=== PATIENT | female | born 1940 | race Caucasian/White ===

== ENCOUNTER 2024-06-19 07:26 | Outpatient (CLI) | payer MEDICARE, SELFPAY | END 2024-06-19 07:27 | disposition home or self-care (01) | LOC: AMB 06-20 01:18 | PROVIDERS: Visit Provider Family Medicine | DX: S79.911A Unspecified injury of right hip, initial encounter (principal); W06.XXXA Fall from bed, initial encounter; Y92.003 Bedroom of unspecified non-institutional (private) residence as the place of occurrence of the external cause | CPT/HCPCS: A0425; A0427 ==

== ENCOUNTER 2024-06-19 08:00 | Observation (INO) | payer MEDICARE, SELFPAY ==
[2024-06-19] VITALS (10 sets, daily range): BP systolic 117–166; BP diastolic 68–93; PULSE 67–91; RESP 16–18; TEMP 36.4–37.3; O2SAT 88–96; BMI 30.9; BMI 26.5
--- NOTE | 2024-06-19 08:02 | ED_ITS ---
HPI - General Adult General Chief complaint: Hip Injury/Pain Stated complaint: Fall Time Seen by Provider: 06/19/24 08:02 History of Present Illness HPI narrative: was staying at her sons' home when she fell out of the bed. there was a rug, and she didn't want to bother her family, did call her family to let them know she was on the floor. 'I just rolled off the bed. has a large hematoma on the right hip. hx of right hip replacement. had fentanyl 50 mcg per ems. has pain with movement. denies other injuries. 83-year-old woman presenting to the emergency department via EMS with concern of right hip pain. Hurts a great deal to move her leg. The right hip is postsurgi lindsey with history of total hip arthroplasty. Is from [place] staying at her son's home in apparently fell out of bed onto the floor where there was a rug. Later query of phone calls made which apparently were made around the time of her fall would indicate an hour and a half or so down time but may have been longer. Did not hit her head. There was no thought of loss of consciousness. Was also noted to have sustained hematoma on the right hip. No complaint of new back pain. No abdominal pain. Has not been vomiting. Is not anticoagulated Related Data Home Medications ?Medication ?Instructions ?Recorded ?Confirmed alendronate 70 mg tablet 70 mg PO .weekly 06/19/24 06/19/24 atorvastatin 20 mg tablet 20 mg PO DAILY 06/19/24 06/19/24 lisinopril 5 mg tablet 5 mg PO DAILY 06/19/24 06/19/24 sertraline 100 mg tablet 100 mg PO DAILY 06/19/24 06/19/24 Allergies Allergy/AdvReac Type Severity Reaction Status Date / Time ampicillin Allergy Verified 06/19/24 08:16 clindamycin Allergy Verified 06/19/24 08:16 Penicillins Allergy Verified 06/19/24 08:16 Review of Systems Status of ROS: Reports: 6 or more systems reviewed and unremarkable except as noted in History and below [facility] Medical History Hyperlipidemia ?E78.5 - Hyperlipidemia, unspecified (ICD-10) Essential hypertension ?I10 - Essential (primary) hypertension (ICD-10) Osteoporosis ?M81.0 - Age-related osteoporosis without current pathological fracture (ICD- 10) Surgical History (Updated 06/19/24 @ 09:57 by Kamila Ventura MD) S/P hip replacement ?Z96.649 - Presence of unspecified artificial hip joint (ICD-10) Exam Narrative: Exam Narrative: Pleasant. Small repeated vocalizations. Does not appear to be in particular distress at rest. Head looks atraumatic. Rolling later to examine back shows kyphosis and some scoliosis but no acute injury and no tissue breakdown over bottom or back. There is a half softball sized hematoma at the right greater trochanter. Abdomen is soft and nontender. No tenderness to anterior compression of the hips. Manipulation of the right hip flexion extension does cause pain. Left hip without pain to the left hip however manipulation of the left hip causes pain in the right. Heart in regular rate and rhythm. She is breathing easily and lungs appear to be clear. Const: Vital Signs, click to edit/add: Vital Signs - 24 hr 06/19/24 08:07 Temperature 97.7 F Pulse Rate [Pulse Oximeter] 78 Respiratory Rate 18 Blood Pressure [Ri ght Upper Arm] 159/83 H Pulse Oximetry 93 Oxygen Delivery Me thod Room Air Documenting provider has reviewed patient's vital signs: yes Course Vital Signs Vital signs: Initial Vital Signs Temperature 97.7 F 06/19/24 08:07 Temperature Source Temporal Artery Scan 06/19/24 08:07 Pulse Rate 78 06/19/24 08:07 Respiratory Rate 18 06/19/24 08:07 Blood Pressure 159/83 H 06/19/24 08:07 Blood Pressure Mean 108 H 06/19/24 08:07 Blood Pressure Position Supine 06/19/24 08:07 Pulse Oximetry 93 06/19/24 08:07 Oxygen Delivery Method Room Air 06/19/24 08:07 Vital Signs Temperature 97.7 F 06/19/24 08:07 Pulse Rate 78 06/19/24 08:07 Respiratory Rate 18 06/19/24 08:07 Blood Pressure 159/83 H 06/19/24 08:07 Pulse Oximetry 93 06/19/24 08:07 Oxygen Delivery Method Room Air 06/19/24 08:07 Temperature 97.7 F 06/19/24 08:07 Pulse Rate 78 06/19/24 08:07 Respiratory Rate 18 06/19/24 08:07 Blood Pressure 159/83 H 06/19/24 08:07 Pulse Oximetry 93 06/19/24 08:07 Oxygen Delivery Method Room Air 06/19/24 08:07 Medical Decision Making MDM Narrative Medical decision making narrative: Certainly may have sustained a hip or pelvic fracture here. The hematoma may be alone causing her pain. The suspect will need to be monitored for expanding of the hematoma though I think less risk given lack of anticoagulation. Down time may warrant further evaluation for renal injury/muscle breakdown. This is likely to have been of brief duration though. Would start with x-rays with concern of scatter from CT. Hip and pelvis x-rays reviewed by me shows a minimally displaced pubic ramus fracture. Hardware looks to be intact. Discussed at initial read with radiologist. See over-read below Three views right hip FINDINGS/IMPRESSION: Normal alignment. No acute fracture or acute osseous abnormalities are visualized. Right hip arthroplasty intact. Soft tissue edema/swelling over the right hip likely reflecting hematoma Dictated by Alis Wilde MD @ 06/19/2024 9:22:07 AM ----- ADDENDUM ----- Addendum: : Please disregard the prior report and refer to this report there are fractures of the right superior pubic ramus and pubis. No significant displacement. Dictated by Alis Wilde MD @ Jun 19 2024 9:32AM (Electronically Signed) For Patients: As a result of the Cures Act, medical imaging exams and procedure reports are released immediately into your electronic medical record. You may view this report before your referring provider. If you have questions, please contact your health care provider. INDICATION: Right hip out of bed TECHNIQUE: Three views right hip FINDINGS/IMPRESSION: Normal alignment. No acute fracture or acute osseous abnormalities are visualized. Right hip arthroplasty intact. Soft tissue edema/swelling over the right hip likely reflecting hematoma Given age and as out of town staying currently at son's home for the holiday, I think it will be difficult to manage there. Did discuss trial at home however I think would be better to be admitted to assess pain needs and mobility. Discussed with orthopedics and then with hospitalist is thankfully accepting for admission. Have ordered other lab evaluations as requested by hospitalist anticipation of admission. Also CT pelvis per orthopedics. Lab Data Lab results reviewed: Yes I reviewed the patient's lab results Labs: Lab Results 06/19/24 Range/Units 09:45 WBC 11.25 H (4.50-11.00) K/uL RBC 4.04 (4.00-5.20) m/uL Hgb 12.6 (12.0-16.0) gm/dL Hct 37.6 (33.0-51.0) % MCV 93 (80-100) fL MCH 31 (26-34) pg MCHC 34 (32-36) gm/dL RDW Coeff of Stanley 12.5 (11.5-15.5) % Plt Count 164 (140-440) K/uL Neut % (Auto) 87.3 H (42.0-72.0) % Lymph % (Auto) 6.2 L (20-44) % Toombs % (Auto) 5.5 (0.0-11.0) % Eos % (Auto) 0.2 (0.0-7.0) % Baso % (Auto) 0.2 (0.0-3.0) % Neut # (Auto) 9.80 H (1.7-7.0) K/uL Lymph # (Auto) 0.70 L (0.90-2.90) K/uL Toombs # (Auto) 0.60 (0.00-0.90) K/UL Eos # (Auto) 0.00 (0.00-0.50) K/uL Baso # (Auto) 0.00 (0.00-0.30) K/uL Abs Immat Gran (auto) 0.10 (0.00-0.30) K/uL Imm/Tot Granulo (auto) 0.6 % Discharge Plan Discharge Clinical Impression: Closed pelvic fracture, Hematoma Patient Disposition: Admitted As Observation Condition: Stable
--- NOTE | 2024-06-19 08:24 | CRLHL7_ITS ---
For Patients: As a result of the Cures Act, medical imaging exams and procedure reports are released immediately into your electronic medical record. You may view this report before your referring provider. If you have questions, please contact your health care provider. INDICATION: Right hip out of bed TECHNIQUE: Three views right hip FINDINGS/IMPRESSION: Normal alignment. No acute fracture or acute osseous abnormalities are visualized. Right hip arthroplasty intact. Soft tissue edema/swelling over the right hip likely reflecting hematoma Dictated by Alis Wilde MD @ 06/19/2024 9:22:07 AM (Electronically Signed)
--- NOTE | 2024-06-19 09:33 | CRLHL7_ITS ---
For Patients: As a result of the Cures Act, medical imaging exams and procedure reports are released immediately into your electronic medical record. You may view this report before your referring provider. If you have questions, please contact your health care provider. Indication: Clarify pelvic fracture Technique: CT pelvis without contrast is obtained. Comparison: X-ray right hip June 18, 2024 Findings: Diffuse bony demineralization. Stable postoperative changes related to right total hip arthroplasty. There is no periprosthetic fracture or loosening. Hardware is intact. Bony pelvis is intact. Degenerative changes of bilateral SI joint. Osteitis pubis. Redemonstration of small soft tissue hematoma of the right posterolateral proximal thigh, which is partially imaged. Included abdomen demonstrates no acute findings. No free fluid. Bilateral inguinal hernia containing bowel loop and mesenteric fat. In addition, right inguinal hernia demonstrates possibility appendix. Impression: Soft tissue hematoma of the right posterolateral thigh, partially imaged. Stable postoperative changes of right total hip arthroplasty without acute fracture. Please note that all CT scans at this facility use dose modulation, iterative reconstruction, and/or weight-based dosing when appropriate to reduce radiation dose to as low as reasonably achievable. Dictated by Braden Johnson MD @ 06/19/2024 10:49:52 AM (Electronically Signed)
[2024-06-19 09:54] LABS: Basophils Percent Auto 0.2 % (0.0-3.0); Eosinophils Percent Auto 0.2 % (0.0-7.0); Hematocrit 37.6 % (33.0-51.0); Hemoglobin* 12.6 gm/dL (12.0-16.0); Immature Granulocytes Pct Auto 0.6 %; Lymphocytes Percent Auto 6.2 % (20-44); Mean Corpuscular HGB Conc 34 gm/dL (32-36); Mean Corpuscular Hemoglobin 31 pg (26-34); Mean Corpuscular Volume 93 fL (80-100); Monocytes Percent Auto 5.5 % (0.0-11.0); Neutrophils Percent Auto 87.3 % (42.0-72.0); Platelet Count* 164 K/uL (140-440); RDW Coefficient of Variation % 12.5 % (11.5-15.5); Red Blood Count 4.04 m/uL (4.00-5.20); White Blood Count* 11.25 K/uL (4.50-11.00)
--- NOTE | 2024-06-19 09:56 | PM.IMHP1 ---
Hospitalist- H&P: HPI History of Present Illness Date Seen: 06/19/24 Chief complaint: Fall Narrative: Sydney Thakkar is a 83 year old female who presented to the ER this morning after a fall at her son's house. She was sleeping in a twin bed at his house (normally sleeps in a [place]), woke up on the floor. Doesn't formally remember the fall or any incidents leading up to it. No headache or neurological symptoms. + R hip pain. Acting normally, per son. ER Course: - concern for pelvic fracture on XR, no fracture on CT - large hematoma R hip - reassuring Hgb, + WBC on UA, culture pending - [place] given for pain Unable to ambulate without an assist of 2 people in ED, admitted for pain management and disposition assistance. Sydney lives in [place], she's visiting her son in [place] for Thanksgiving. Son notes that family has been considering increased services at home for some time. Histories updated below. PCP at [facility] in [place], [place]. Review of Systems Status of ROS: Reports: 10 or more systems reviewed and unremarkable except as noted in History and below [facility] Medical History (Updated 06/19/24 @ 12:17 by Kamila Ventura MD) Alzheimer dementia ?G30.9 - Alzheimer's disease, unspecified (ICD-10) ?F02.80 - Dementia in other diseases classified elsewhere, unspecified severity, without behavioral disturbance, psychotic disturbance, mood disturbance, and anxiety (ICD-10) Hyperlipidemia ?E78.5 - Hyperlipidemia, unspecified (ICD-10) Essential hypertension ?I10 - Essential (primary) hypertension (ICD-10) Osteoporosis ?M81.0 - Age-related osteoporosis without current pathological fracture (ICD-10) Surgical History (Updated 06/19/24 @ 09:57 by Kamila Ventura MD) S/P hip replacement ?Z96.649 - Presence of unspecified artificial hip joint (ICD-10) Social History (Updated 06/19/24 @ 12:12 by Kamila Ventura MD) Narrative: Lives independently in [place], [place]. Daughter Cee SANCHEZ. Nonsmoker, no ETOH. What is your current living situation?: I presently have a place to live Problems where you live: no known problems Problems where you live details: none In the past 12 months, utilities in danger of being shut off: no In the past 12 mos, have been you worried that your food would run out before you had money to buy more?: never true In the past 12 mos, the food you bought just didn't last and you didn't have money to buy more?: never true Highest level of school completed/degree received: Associate degree: occupational, technical, vocational program Smoking Status: Never smoker Do you use any of these nicotine containing products: None Second hand tobacco smoke exposure: No How often do you have a drink containing alcohol: monthly or less Alcohol type: wine How many standard drinks containing alcohol do you have on a typical day: 1 or 2 How often do you have six or more drinks on one occasion: Never AUDIT-C Alcohol total score: 1 Non-prescribed substance use: denies use Caffeine: Yes (1 cup dly) How often does anyone, including family, friends and others, physically hurt you: never How often does anyone, including family, friends and others, insult or talk down to you: never How often does anyone, including family, friends and others, threaten you with harm: never How often does anyone, including family, friends and others, scream or curse at you: never Gender Identity: female service: No Meds Home Medications and Allergies Home Medications ?Medication ?Instructions ?Recorded ?Confirmed ?Type alendronate 70 mg tablet 70 mg PO .weekly 06/19/24 06/19/24 History atorvastatin 20 mg tablet 20 mg PO DAILY 06/19/24 06/19/24 History lisinopril 5 mg tablet 5 mg PO DAILY 06/19/24 06/19/24 History sertraline 100 mg tablet 100 mg PO DAILY 06/19/24 06/19/24 History Allergies Allergy/AdvReac Type Severity Reaction Status Date / Time ampicillin Allergy Verified 06/19/24 08:16 clindamycin Allergy Verified 06/19/24 08:16 Penicillins Allergy Verified 06/19/24 08:16 Exam Narrative: Exam Narrative: GEN: Alert and answering questions appropriately, nontoxic HEENT: No hematomas or abrasions on head, pupils miotic bilaterally, EOMIs CV: RRR, No concerning murmurs R: LCTA bilaterally without concerning wheezing, air movement adequate Ab: Soft and nontender Ext: wwp, 1+ BLE edema Skin: Hematoma left hand, large hematoma right hip Neuro: No focal neurologic deficits Psych: Appears to have cognitive impairment, no agitation Const: Vital Signs, click to edit/add: Vital Signs - 24 hr 06/19/24 08:07 Temperature 97.7 F Pulse Rate [Pulse Oximeter] 78 Respiratory Rate 18 Blood Pressure [Ri ght Upper Arm] 159/83 H Pulse Oximetry 93 Oxygen Delivery Me thod Room Air Assessment and Plan Assessment and plan (1) Fall: Problem comment: - presumably mechanical 2/2 confusion at son's house (smaller bed than home) - follow on telemetry to ensure no arrythmia - therapies ordered Status: Acute (2) Hematoma: Problem comment: - R hip, follow Hgb Status: Acute Plan - per above - continue home medications for comorbidities - son updated at bedside, questions answered - he believes Sydney is Full Code, confirming with DANIEL
[2024-06-19 10:05] LABS: Slide Review Reflex No
[2024-06-19 10:08] LABS: Albumin* 3.8 g/dL (3.3-5.0); Chloride* 100 mmol/L (96-114); Sodium* 133 mmol/L (135-149)
[2024-06-19 10:09] LABS: Potassium* 4.4 mmol/L (3.6-5.1)
[2024-06-19 10:09] LABS: Appearance Urine Clear (Clear); Bilirubin Urine Negative (Negative); Blood Urine Negative (Negative); Color Urine Yellow (Yellow); Glucose Urine Negative (Negative); Ketones Urine Trace (Negative); Leukocyte Esterase Urine 1+ (Negative); Nitrite Urine Negative (Negative); Protein Urine Negative (Negative); pH Urine 6.5 (5.0-8.5)
[2024-06-19] MEDS: HYDROCODONE-ACETAMIN 5-325 MG 1 TAB 2 TAB PO (10:09)
[2024-06-19 10:11] LABS: Alkaline Phosphatase* 58 U/L (40-150); Anion Gap 5 mEq/L (7-15); Aspartate Amino Transferase* 26 U/L (12-35); Bilirubin Direct* 0.2 mg/dL (0.0-0.5); Bilirubin Total* 1.4 mg/dL (0.1-1.5); Blood Urea Nitrogen* 12 mg/dL (7-30); Carbon Dioxide* 28 mmol/L (20-32); Creatine Kinase* 77 U/L (41-117); Creatinine* 0.5 mg/dL (0.5-1.5); Est. Creatinine Clearance* 36.16; Estimated Glomerular Filt Rate 92 ml/min; Glucose* 103 mg/dL (60-115); Total Protein* 6.3 g/dL (6.0-8.3)
[2024-06-19 10:12] LABS: Alanine Aminotransferase* 18 U/L (4-35)
[2024-06-19 10:16] LABS: Bacteria Urine Few; RBC Urine 0-2 (0-2)
[2024-06-19 18:29] LABS: Hemoglobin* 12.2 gm/dL (12.0-16.0)
--- NOTE | 2024-06-19 23:15 | PC.NURSE ---
PATIENT ORIENTED TO SELF AND REQUIRING FREQUENT REORIENTATION BUT PLEASANT AND COOPERATIVE. TELE SHOWING INTERMITTENT A-FIB WHICH WAS CONFIRMED WITH EKG. DR. BARNES UPDATED. CURRENTLY NSR WITH PAC'S AND RATE 70-80'S. UP WITH A1-2, WALKER AND GAIT BELT TO COMMODE AND RECLINER. DENIES PAIN AT REST.
[2024-06-20] MEDS: ACETAMINOPHEN 325 MG TABLET 975 MG PO (01:44)
[2024-06-20 01:50] VITALS: BP 159/71; PULSE 73; RESP 20; TEMP 36.6; O2SAT 93
[2024-06-20 06:23] LABS: Basophils Absolute Auto 0.02 K/uL (0.00-0.30); Basophils Percent Auto 0.3 % (0.0-3.0); Eosinophils Absolute Auto 0.04 K/uL (0.00-0.50); Eosinophils Percent Auto 0.5 % (0.0-7.0); Hematocrit 34.5 % (33.0-51.0); Hemoglobin* 11.5 gm/dL (12.0-16.0); Immature Granulocytes Pct Auto 1.3 %; Mean Corpuscular HGB Conc 33 gm/dL (32-36); Mean Corpuscular Hemoglobin 31 pg (26-34); Mean Corpuscular Volume 94 fL (80-100); Monocytes Percent Auto 6.9 % (0.0-11.0); Platelet Count* 156 K/uL (140-440); RDW Coefficient of Variation % 12.7 % (11.5-15.5); Red Blood Count 3.69 m/uL (4.00-5.20); White Blood Count* 7.94 K/uL (4.50-11.00)
[2024-06-20 06:52] LABS: Slide Review Reflex No
[2024-06-20 07:00] VITALS: BP 136/79; PULSE 62; PULSE 89; RESP 20; TEMP 36.8; O2SAT 90
[2024-06-20 08:57] VITALS: PULSE 85
[2024-06-20 12:13] LABS: Thyroid Stimulating Hormone* 0.771 uIU/mL (0.270-4.20)
--- NOTE | 2024-06-20 12:21 | P.DS_ITS ---
DS: Providers Provider Date Seen: 06/20/24 Date of admission: 06/19/24 10:42 Primary care physician: Amber Barnes MD ([facility]) Admitting Clinician: Kamila Ventura MD Consults: SW, PT, OT Attending Physician on discharge: Kamila Ventura MD Date of Discharge: 06/20/24 DS: Diagnosis Discharge Diagnosis (1) Atrial fibrillation: Status: Acute Problem details: - new diagnosis, paroxysmal (rate 120s) - noted overnight during stay, self resolved - CHADS2-VASC of 4 - given age and fall risk, did not initiate anticoagulation during stay - Zio patch placed upon discharge with close PCP follow-up to discuss results and plan (2) Fall: Status: Acute Problem details: - seen by therapies during stay, family taking home with 24/7 supervision over the weekend with plan to initiate SNF care early next week (3) Essential hypertension: Status: Acute (4) Hematoma: Status: Acute Problem details: - R hip, s/p fall - Hgb remained stable DS: Summary Hospital Course Hospital Course: Ezra was admitted to the hospital after a fall, sustaining a right hip hematoma. No acute fractures noted on CT of the pelvis. She was seen by therapies, who recommend 24/7 supervision, but did not find evidence of an injury requiring TCU placement. Family plans to provide this over the weekend and they are actively searching out SNF options for the future. Notably had an echo episode of paroxysmal AFib, details above. TSH normal. Close follow-up with PCP recommended to discuss Zio patch results and risks/benefits of anticoagulation. Status at Discharge Functional status at discharge: uses cane/walker Overall status at discharge: patient is progressing back to baseline Time Spent with Patient Time attestation: Total time spent providing and/or coordinating discharge services: Time spent: Less than 30 minutes Exam Narrative: Exam Narrative: Sitting comfortably in bedside chair, nontoxic Cardiovascular exam exhibits regular rate and rhythm without concerning murmurs Lungs clear to auscultation bilaterally without wheezes or crackles Using walker for ambulation with therapy teams Const: Vital Signs, click to edit/add: Vital Signs - 24 hr 06/19/24 15:00 06/19/24 17:00 06/19/24 19:30 Temperature 98.3 F 98.0 F Pulse Rate 67 Pulse Rate [Left B rachial] 68 76 Pulse Rate [Pulse Oximeter] Respiratory Rate 18 18 Blood Pressure [Le ft Arm] 118/68 117/69 Pulse Oximetry 90 88 Oxygen Delivery Me thod Room Air Room Air Oxygen Flow Rate 06/19/24 19:35 06/19/24 23:50 06/19/24 23:50 Temperature Pulse Rate 91 91 Pulse Rate [Left B rachial] Pulse Rate [Pulse Oximeter] 90 Respiratory Rate 18 Blood Pressure [Le ft Arm] Pulse Oximetry Oxygen Delivery Me thod Oxygen Flow Rate 06/19/24 23:50 06/19/24 23:50 06/20/24 01:50 Temperature 99.1 F 97.9 F Pulse Rate Pulse Rate [Left B rachial] Pulse Rate [Pulse Oximeter] 90 73 Respiratory Rate 18 18 20 Blood Pressure [Le ft Arm] 166/87 H 159/71 H Pulse Oximetry 93 93 93 Oxygen Delivery Me thod Room Air Room Air Room Air Oxygen Flow Rate 2 2 2 06/20/24 07:00 06/20/24 07:00 06/20/24 07:00 Temperature 98.2 F Pulse Rate Pulse Rate [Left B rachial] 89 Pulse Rate [Pulse Oximeter] 62 Respiratory Rate 20 20 Blood Pressure [Le ft Arm] 136/79 Pulse Oximetry 90 90 Oxygen Delivery Me thod Room Air Room Air Oxygen Flow Rate DS: Data Data Completed and Pending Labs on day of discharge: Labs from last 24 hours 06/20/24 06/20/24 06/19/24 11:09 05:48 18:05 WBC 7.94 RBC 3.69 L Hgb 11.5 L 12.2 Hct 34.5 MCV 94 MCH 31 MCHC 33 RDW Coeff of Stanley 12.7 Plt Count 156 Neut % (Auto) 80.0 H Lymph % (Auto) 11.0 L Clinch % (Auto) 6.9 Eos % (Auto) 0.5 Baso % (Auto) 0.3 Neut # (Auto) 6.40 Lymph # (Auto) 0.90 Clinch # (Auto) 0.50 Eos # (Auto) 0.04 Baso # (Auto) 0.02 Abs Immat Gran (auto) 0.10 Imm/Tot Granulo (auto) 1.3 TSH 0.771 Lab Acknowledgement Test Added Preliminary micro results at discharge 06/19/24 10:02 Urine Culture - Preliminary Urine,Clean Catch Discharge Plan Discharge Disposition: Home, Self-Care Date of Admission: 06/19/24 10:42 Attending Provider on Discharge: Kamila Ventura Primary Care Provider: Provider,Not a Local Condition: Stable Anticipated Discharge Date/Time: 06/20/24 12:14 Discharge Medications: Continued alendronate 70 mg tablet 70 mg PO .weekly atorvastatin 20 mg tablet 20 mg PO DAILY sertraline 100 mg tablet 100 mg PO DAILY lisinopril 5 mg tablet 5 mg PO DAILY Discharge Orders: Discharge Order (Routine); Ordered 06/20/24 Ordered By: Kamila Ventura Patient Education: Zio (Home Heart Monitor) Additional Instructions: Our therapy teams are recommending 24/7 caregiving for cognitive and physical safety. Since there is likely shelter admission early next week and Home Health care isn't able to start for 5-7 days, we're not ordering this on discharge, BUT if there's an issue getting into a facility early next week, call us at the [facility] ([phone]) and I'll place an order for Home Health to start next week. Sydney was found to have a short episode of atrial fibrillation overnight 06/19, self-resolved. We made no medication changes for this, but she should see her PCP in 1-2 weeks to discuss findings, stroke risk, and plan. We are placing a ZIO PATCH on discharge which will monitor her heart rhythm and let her PCP know if there are any other concerning rhythm findings. Activity Level: No strenuous activity Activity Detail: per our Therapy teams Discharge Diet: Regular Follow Up Appointments: Provider,Not a Local [Primary Care Provider] - Forms: [employer] Info Instructions
--- NOTE | 2024-06-20 13:23 | PC.SOCIAL ---
Discharge planning: Met with pt and family multiple times regarding d/c plan. Initially, family wanted pt to be discharged directly to [facility] in her home town of [place], [place]. Pt lives in her own apartment alone there and was visiting her son at his home in [place] when she fell out of bed last night. There were four family members in the room and additional family members on the phone during these social work visits. Family is aware of pt's status as observation and that she does not meet criteria for Medicare coverage of a prison stay. saniyay is agreeable to private pay placement. Called [facility] and was sent to Jacqui in the business office as the admissions staff was not working today. Secure emailed information on pt for evaluation for admit to Jacqui at [email or web address] (phone [phone]) and to the admissions staff, [email or web address] (Joanna at [phone]). Received call back from Jacqui stating no one is available to do an assessment for admit today although they do have beds available in their transitional care unit. Jacqui states that if information is sent today, pt could be evaluated on Sunday for admit on Sunday. Met again with family who states they are all self employed and no one would be able to stay with pt over the weekend, so they need pt to go straight to a shelter today. Family requested social media editor look for shelter placement in [place], [place], [place], [place] or [place]. head loft worker called [facility] [place] and [facility], who could both consider an admission today and had left a message at [place] and had confirmed [facility] is not evaluating pt's for admit before Sunday.Prior to social media editor being able to contact all the requested shelter facilities regarding availability, family shared that they still want pt evaluated by [facility] for Sunday admit from home but want to have pt discharged home today and will provide assistance at home by the adult children in the room and others who are not present and extended family members including two physicians and a Physical Therapist who are currently visiting pt from [facility] for the holiday. Family gave social media editor permission to send any additional requested information to [facility] at discharge or after to assist with facilitating admission from home next week. Family is aware that after discharge, facility will be discussing admission plans directly with family. Family and pt are pleased with this plan.
--- NOTE | 2024-06-20 15:23 | PC.NURSE ---
shift note: vss stable. pt up 1/walker with slow steady gait. pain in comfort level. bruising to rt hip deep purple. swelling at rt hip. ice applied intermittently to hip. Reviewed dc instructions and zio patch with family. copies of dc instructions sent with pt. Belongings reviewed and sent with pt. IV removed intact Lt AC
== END 2024-06-20 12:30 ==
LOC: ED 09:39 → MEDSURG 10:42
PROVIDERS: Admitting Provider Family Medicine; Emergency Provider Family Medicine; Visit Provider Family Medicine
DX: T14.8XXA Other injury of unspecified body region, initial encounter (principal); I48.91 Unspecified atrial fibrillation; W19.XXXA Unspecified fall, initial encounter; Z96.641 Presence of right artificial hip joint; M25.551 Pain in right hip; I10 Essential (primary) hypertension; R82.90 Unspecified abnormal findings in urine
CPT/HCPCS: 36415; 72192; 73502; 80048; 80076; 81001; 82550; 84443; 85018; 85025; 87086; 93005; 93246; 97116; 97162; 97165; 97530; 97535; 99284; 99285; G0378; A9270